=== PATIENT | female | born 1950 | race Caucasian/White ===

== ENCOUNTER 2017-03-27 13:07 | Emergency (ER) | payer OTHER, MEDICARE ==
[~2017-03-27] VITALS: Ht 157.5 cm; Wt 90.7 kg
[~2017-03-27 13:07] MED LIST: ADVAIR DISKUS 21 DSK INH; ALBUTEROL 3 ML3 ML INH; ALBUTEROL0.09 MG/A1 INH; ALBUTEROL1.25 MG/3 INH; ANTIVERT 12.512.5 MG PO; ANTIVERT 25MG #1 PAC PO; ATIVAN0.5 M1 PO; ATIVAN0.5 MG PO; ATIVAN1 MG PO; AUGMENTIN 875 M1 TAB PO; BACTRIM DS TAB1 EACH PO; BUSPIRONE15 MG PO; CLARITIN10 MG PO; CLEOCIN HCL300 M1 PO; DRISDOL50000 IU PO; FLUTICASON0.05 MG/Ac NASB; HYDROXYZINE HCL25 MG PO; IBU800 MG PO; MEDROL DOSEPAK1 PAC PO; MOBIC 15MG15 MG PO; MOBIC15 MG PO; MOMETASONE0.05 MG/Ac NASB; MOTRIN 600 MG600 MG PO; NICODERM C21 MG/24 H TOP; Nebulizer machine; PATADAY 2.5 ML2.5 ML OPH; PERCOCET 5-3251 EACH PO; PREDNISONE 10MG10 M1 PO; PREDNISONE 20MG20 MG PO; PREDNISONE10 MG PO; SPIRIVA 18 MCG18 MCG INH; SYMBICORT 160/41 PUF INH; TESSALON PERLE100 MG PO; TRAMADOL50 MG PO; TRIAMCINOL0.1 %/453 TOP; VITAMIN D50000 IU PO; ZITHROMAX 500M500 MG PO; ZITHROMAX Z-PA250 M1 PO; ZYRTEC ALLERGY10 MG PO
--- NOTE | 2017-03-27 14:14 | CT SCAN REPORT ---
EXAMINATION: CT HEAD WITHOUT CONTRAST CT CERVICAL SPINE WITHOUT CONTRAST CLINICAL INFORMATION: Fall and hit head. COMPARISON: None TECHNIQUE: CT of the head and cervical spine were performed without intravenous contrast. Multiplanar reformats were rendered and reviewed. DLP: 911 mGy-cm. FINDINGS: CT head: There is no intracranial hemorrhage, extra-axial collection, or calvarial fracture. There is mild soft tissue swelling at the parietal vertex and in the left frontal scalp. There is no CT evidence of large territory infarct, mass, or mass effect. The ventricles are normal in size and configuration without evidence of hydrocephalus. The extracranial structures are within normal limits. CT cervical spine: There is no prevertebral soft tissue swelling. The craniocervical junction is intact. There are degenerative changes at the atlantodental interval. There is trace anterolisthesis of C2 on C3 with alignment otherwise maintained. There is reversal of the normal cervical lordosis. No fracture is seen. There are multilevel degenerative changes with intervertebral disc height loss, endplate spurring, and uncovertebral and facet arthropathy. Disc height loss is greatest at C4-C5 and C5-C6. There is advanced facet arthropathy on the right at C3-C4 and on the left at C6-C7. As a result as the degenerative changes there is multilevel neural foraminal stenosis which is most advanced on the right at C3-C4, on the left at C4-C5, on the right at C5-C6, and on the left at C6-C7. The paraspinal soft tissues are within normal limits. IMPRESSION: CT head: 1. Mild soft tissue swelling at the parietal vertex and left frontal scalp. 2. No intracranial hemorrhage, extra-axial collection, or calvarial fracture. CT cervical spine: 1. No cervical spine fracture or traumatic malalignment. 2. Multilevel degenerative changes throughout the cervical spine resulting in varying degrees of neural foraminal stenosis.
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
[2017-03-27] MEDS ORDERED: CYCLOBENZAPRINE5 M2 PO (16:25)
[2017-03-27] MEDS ORDERED: PROTONIX20 M1 PO (16:25)
[2017-03-27] MEDS ORDERED: PERCOCET 5-3251 EACH PO (16:25)
[2017-03-27 16:34] VITALS: BP 168/75
== END 2017-03-27 17:00 ==
LOC: ERH 13:07
DX: S09.90XA Unspecified injury of head, initial encounter (principal); W07.XXXA Fall from chair, initial encounter; Y93.89 Activity, other specified; Y92.9 Unspecified place or not applicable